=== PATIENT | female | born 1965 | race Caucasian/White ===

== ENCOUNTER → 2018-09-30 | Outpatient (CLI) | payer OTHER ==
--- NOTE | 2018-09-30 17:50 | 2DMMODE ---
[place] [address] 2 D/M-MODE ECHOCARDIOGRAM Name: IHSAN HUITRON Room: [facility]#: [id number] Admission: 09/30/18 Attend Phys: Rachel Kim Discharge: Date of : 69 Date of Service: 09/30/18 1750 Report #: [id number] THIS REPORT FOR: //name// APPROVED REPORT Study performed: 09/30/2018 16:00:08 EXAM: Comprehensive 2D, Doppler, and color-flow Echocardiogram Patient Location: Out-Patient Status: routine BSA: 2.07 HR: 62 bpm BP: 143/102 mmHg Rhythm: NSR Other Information Study Quality: Good Indications Orthopnea 2D Dimensions IVSd: 9.45 (7-11mm) LVOT Diam: 20.13 (18-24mm) LVDd: 36.30 mm PWd: 8.77 (7-11mm) Ascending Ao: 34.41 (22-36mm) LVDs: 24.00 (25-40mm) Aortic Root: 29.74 mm Volumes Left Atrial Volume (Systole) LA ESV Index: 20.00 mL/m2 Aortic Valve AoV Peak Michael.: 1.45 m/s AO Peak Gr.: 8.46 mmHg LVOT Max P.20 mmHg AO Mean Gr.: 4.40 mmHg LVOT Mean P.01 mmHg LVOT Max V: 1.02 m/s AO V2 VTI: 25.84 cm LVOT Mean V: 0.65 m/s TAYLOR (VTI): 2.72 cm2 LVOT V1 VTI: 22.08 cm Mitral Valve E/A Ratio: 0.93 MV Decel. Time: 265.21 ms MV E Max Michael.: 0.64 m/s MV PHT: 76.91 [place] [address] 2 D/M-MODE ECHOCARDIOGRAM Name: IHSAN HUITRON Room: [facility]#: [id number] Admission: 09/30/18 Attend Phys: Rachel Kim Discharge: Date of : 69 Date of Service: 09/30/18 1750 Report #: [id number] MVA (PHT): 2.86 cm2 TDI E/Lateral E': 5.82 E/Medial E': 8.00 Medial E' Michael.: 0.08 m/s Lateral E' Michael.: 0.11 m/s Pulmonary Valve PV Peak Michael.: 0.88 m/s PV Peak Gr.: 3.10 mmHg Tricuspid Valve RAP Estimate: 5.00 mmHg TR Peak Gr.: 22.72 mmHg RVSP: 27.00 mmHg PA Pressure: 27.00 mmHg Left Ventricle The left ventricle is normal size. There is normal LV segmental wall motion. There is normal left ventricular wall thickness. Left ventricular systolic function is normal. LVEF is 60-65%. Grade I - abnormal relaxation pattern. Right Ventricle The right ventricle is normal size. The right ventricular systolic function is normal. Atria The left atrium size is normal. The right atrium size is normal. Aortic Valve The aortic valve is normal in structure. No aortic regurgitation is present. There is no aortic valvular stenosis. Mitral Valve The mitral valve is normal in structure. Trace mitral regurgitation. No evidence of mitral valve stenosis. Tricuspid Valve The tricuspid valve is normal in structure. Trace tricuspid regurgitation. No pulmonary hypertension. Pulmonic Valve The pulmonary valve is normal in structure. There [place] [address] 2 D/M-MODE ECHOCARDIOGRAM Name: IHSAN HUITRON Room: [facility]#: [id number] Admission: 09/30/18 Attend Phys: Rachel Kim Discharge: Date of : 69 Date of Service: 09/30/18 1750 Report #: [id number] regurgitation. Great Vessels The aortic root is normal in size. IVC is normal in size and collapses >50% with inspiration. Pericardium There is no pericardial effusion. <Conclusion> The left ventricle is normal size. There is normal left ventricular wall thickness. Left ventricular systolic function is normal. LVEF is 60-65%. Grade I - abnormal relaxation pattern. Trace mitral regurgitation. Trace tricuspid regurgitation. No pulmonary hypertension. IVC is normal in size and collapses >50% with inspiration. <ELECTRONICALLY SIGNED> By: Ryne Orta MD, FACC 09/30/181749 [id number] 49 Ryne Orta MD, FACC /INF
== END ==
LOC: M.CRD 15:00
DX: I51.7 Cardiomegaly (principal); R06.01 Orthopnea